=== PATIENT | female | born 1980 | race Caucasian/White ===

== ENCOUNTER 2020-05-15 07:15 | Inpatient (IN) | payer BC ==
[~2020-05-15 07:15] MED LIST: Celecoxib 200 MG Cap PO ONE; Dexamethasone 4 MG/ML SDV ONE; Glycopyrrolate 0.2 MG/ML 5 ML MDV ONE; Lactated Ringers 1,000 ML ONE; Neostigmine Methylsulfate 1 MG/ML 5 ML Syringe ONE; Ondansetron 4 MG/2 ML SDV ONE; Propofol 200 MG/20 ML SDV ONE; Rocuronium 50 MG/5 ML Vial ONE; Succinylcholine 200 MG/10 ML MDV ONE; cefOXitin 2 GM Vial ONE; fentaNYL 250 MCG/5 ML SDV ONE
[2020-05-15] MEDS ORDERED: Acetaminophen 500 MG Tab PO ONE (07:45)
[2020-05-15] MEDS ORDERED: Scopolamine 1.5 MG Transdermal Patch TOP SCH (07:45)
[2020-05-15] MEDS ORDERED: Dextrose 5%-Lactated Ringers 1,000 ML IV SCH ×2 (08:00→13:45)
[2020-05-15] MEDS ORDERED: Albuterol/Ipratropium 3.0-0.5 MG/3 ML Neb Soln NEB ONE (08:00)
[2020-05-15] MEDS: cefOXitin 2 GM in Sodium Chloride 0.9% 50 ML IV ONE ×2 (09:00→14:03)
[2020-05-15] MEDS ORDERED: Ketamine 50 MG in Sodium Chloride 0.9% 49.5 ML IV SCH (09:00)
[2020-05-15] MEDS ORDERED: Ketamine 500 MG/5 ML MDV IV SCH (09:00)
[2020-05-15] MEDS ORDERED: fentaNYL 250 MCG/5 ML SDV ONE (09:30)
[2020-05-15] MEDS ORDERED: Rocuronium 50 MG/5 ML Vial ONE (09:57)
[2020-05-15] MEDS ORDERED: fentaNYL 100 MCG/2 ML SDV ONE (11:43)
[2020-05-15] MEDS ORDERED: 50% Dextrose in Water 50 ML Syringe IVPUSH PRN (12:05)
[2020-05-15] MEDS ORDERED: hydrOXYzine HCL 100 MG/2 ML SDV IM ONE (12:05)
[2020-05-15] MEDS ORDERED: Glucagon,Human Recombinant 1 MG Vial IM PRN (12:05)
[2020-05-15] MEDS ORDERED: Insulin Lispro 100 Unit/ML 3 ML KwikPen SUBCUT ONE (12:15)
[2020-05-15] MEDS: HYDROmorphone 1 MG/ML Syringe IV PRN ×2 (13:54→17:30)
[2020-05-15] MEDS ORDERED: Ondansetron 4 MG/2 ML SDV IVPUSH PRN (14:00)
[2020-05-15] MEDS ORDERED: Metoclopramide 10 MG/2 ML SDV IVPUSH PRN (14:00)
[2020-05-15] MEDS ORDERED: Acetaminophen 500 MG Tab PO PRN (14:00)
[2020-05-15] MEDS ORDERED: diphenhydrAMINE 50 MG/ML SDV IVPUSH PRN (14:00)
[2020-05-15] MEDS ORDERED: Pantoprazole 40 MG Vial IVPUSH SCH ×2 (14:00→18:00)
[2020-05-15] MEDS ORDERED: Acetaminophen 500 MG Tab PO SCH (14:00)
[2020-05-15] MEDS ORDERED: HYDROmorphone 0.5 MG/0.5 ML Syringe IVPUSH PRN (14:00)
[2020-05-15] MEDS ORDERED: Calcium Gluconate 10% 1 GM/10 ML SDV IVPUSH PRN (14:00)
[2020-05-15] MEDS ORDERED: Insulin Lispro 100 Unit/ML 3 ML KwikPen SUBCUT PRN (14:00)
[2020-05-15] MEDS: Lactated Ringers 1,000 ML IV SCH ×2 (14:01→21:42)
[2020-05-15] MEDS: Labetalol 20 MG/4 ML Syringe IVPUSH PRN ×3 (14:05→16:29)
[2020-05-15] MEDS: Albuterol/Ipratropium 3.0-0.5 MG/3 ML Neb Soln INH SCH ×2 (14:12→21:26)
[2020-05-15] MEDS: cefOXitin 2 GM in Sodium Chloride 0.9% 50 ML IV SCH ×2 (15:54→21:26)
[2020-05-15] MEDS: Acetaminophen 500 MG Tab PO SCH ×2 (15:54→23:43)
[2020-05-15] MEDS ORDERED: MVI, Adult with Vitamin K 10 ML, Thiamine 200 MG, Zinc/Copper/Manganese/Selenium 1 ML i... IV SCH ×4 (16:00)
[2020-05-15] MEDS: Heparin Sodium 5,000 Units/ML Vial SUBCUT SCH (17:33)
[2020-05-15] MEDS: hydrOXYzine HCL 100 MG/2 ML SDV IM PRN (18:20)
[2020-05-15] MEDS: oxyCODONE 5 MG Tab PO PRN (19:37)
[2020-05-16] MEDS: hydrOXYzine HCL 100 MG/2 ML SDV IM PRN ×5 (00:54→18:06)
[2020-05-16] MEDS: oxyCODONE 5 MG Tab PO PRN ×4 (01:17→19:36)
[2020-05-16] MEDS ORDERED: Iopamidol 612 MG/ML 50 ML SDV PO STA (03:01)
[2020-05-16] MEDS: Lactated Ringers 1,000 ML IV SCH ×2 (03:26→11:39)
[2020-05-16] MEDS: cefOXitin 2 GM in Sodium Chloride 0.9% 50 ML IV SCH ×4 (04:13→21:19)
[2020-05-16] MEDS: Heparin Sodium 5,000 Units/ML Vial SUBCUT SCH ×3 (04:59→21:20)
[2020-05-16] MEDS: Albuterol/Ipratropium 3.0-0.5 MG/3 ML Neb Soln INH SCH ×4 (06:57→20:38)
[2020-05-16] MEDS: Acetaminophen 500 MG Tab PO SCH ×2 (07:21→15:14)
[2020-05-16] MEDS: SCOPOLAMINE PATCH CHECK TOP SCH (09:00)
[2020-05-16] MEDS: FLUoxetine 20 MG Cap PO SCH (09:05)
[2020-05-16] MEDS: Celecoxib 200 MG Cap PO SCH ×2 (09:05→21:21)
--- NOTE | 2020-05-16 09:08 | CR ---
[facility] HISTORY: Postbariatric surgery FINDINGS: Patient swallowed water-soluble contrast. Upright views of the abdomen show no evidence of extravasation or obstruction. There is a surgical drain in the left upper quadrant. IMPRESSION: Status post bariatric surgery No extravasation or obstruction seen
[2020-05-16] MEDS ORDERED: MVI, Adult with Vitamin K 10 ML, Thiamine 200 MG, Zinc/Copper/Manganese/Selenium 1 ML i... IV SCH ×4 (16:00)
[2020-05-16] MEDS: Pantoprazole 40 MG Delayed-Release Granules 1 Packet PO SCH (16:06)
[2020-05-16] MEDS: HYDROmorphone 1 MG/ML Syringe IV PRN (21:16)
[2020-05-17] MEDS: Acetaminophen 500 MG Tab PO SCH ×4 (00:03→23:08)
[2020-05-17] MEDS: oxyCODONE 5 MG Tab PO PRN ×4 (01:19→22:07)
[2020-05-17] MEDS: Cyclobenzaprine 10 MG Tab PO PRN ×2 (02:49→12:05)
[2020-05-17] MEDS: Lactated Ringers 1,000 ML IV SCH (04:51)
[2020-05-17] MEDS: Heparin Sodium 5,000 Units/ML Vial SUBCUT SCH ×3 (05:18→22:08)
[2020-05-17] MEDS: Albuterol/Ipratropium 3.0-0.5 MG/3 ML Neb Soln INH SCH ×4 (07:07→20:44)
[2020-05-17] MEDS ORDERED: Cyanocobalamin (Vitamin B12) 1,000 MCG/ML SDV IM ONE (09:00)
[2020-05-17] MEDS: Celecoxib 200 MG Cap PO SCH ×2 (09:42→20:45)
[2020-05-17] MEDS: SCOPOLAMINE PATCH CHECK TOP SCH (09:43)
[2020-05-17] MEDS: FLUoxetine 20 MG Cap PO SCH (09:43)
[2020-05-17] MEDS ORDERED: Sodium Chloride 0.9% 10 ML Syringe IV PRN (09:47)
[2020-05-17] MEDS ORDERED: Magnesium Hydroxide 400 MG/5 ML Susp 30 ML Cup PO PRN (09:49)
[2020-05-17] MEDS: Docusate Sodium 100 MG Cap PO SCH ×2 (10:59→20:45)
[2020-05-17] MEDS: Bisacodyl 5 MG Tab PO SCH ×2 (10:59→20:45)
[2020-05-17] MEDS: Pantoprazole 40 MG Delayed-Release Granules 1 Packet PO SCH (15:55)
[2020-05-18] MEDS: oxyCODONE 5 MG Tab PO PRN ×2 (05:08→10:30)
[2020-05-18] MEDS: Heparin Sodium 5,000 Units/ML Vial SUBCUT SCH (05:09)
[2020-05-18] MEDS: Albuterol/Ipratropium 3.0-0.5 MG/3 ML Neb Soln INH SCH ×2 (07:08→10:45)
[2020-05-18] MEDS: Docusate Sodium 100 MG Cap PO SCH (08:27)
[2020-05-18] MEDS: FLUoxetine 20 MG Cap PO SCH (08:27)
[2020-05-18] MEDS: Celecoxib 200 MG Cap PO SCH (08:27)
[2020-05-18] MEDS: Bisacodyl 5 MG Tab PO SCH (08:27)
[2020-05-18] MEDS: Acetaminophen 500 MG Tab PO SCH (08:57)
--- NOTE | 2020-05-18 12:37 | PN ---
DATE OF SERVICE: 05/16/2020 The patient has been afebrile with stable vital signs status post laparoscopic duodenal switch yesterday. Her blood sugars are running in the mid 140s, and otherwise, the oral intake has been reasonably good. Urine output has been good and the plan will be to go up to a step-2 diet without solids today, back down on the IV rate, and get the Scott catheter out. With her weight of being 440 pounds, we will move the heparin up to q.8 hour rate for the time being. She may or may not be ready for discharge home tomorrow based on her mobility and pain control status. Corey Almanza MD /[id number]
--- NOTE | 2020-05-18 12:46 | DISCH ---
FINAL DIAGNOSES: 1. Morbid obesity. 2. Obstructive sleep apnea. 3. Prediabetes. 4. History of hypoparathyroidism. 5. History of polycystic ovary syndrome. 6. History of panic disorder and anxiety. 7. Hepatomegaly. 8. Paraesophageal diaphragmatic hernia associated with mediastinal lipoma. 9. Small peritoneal implant over gastric cardia. OPERATIVE PROCEDURES: Done on 05/15/2020: 1. Laparoscopic duodenal switch. 2. Juan-cut needle liver biopsy. 3. Repair of paraesophageal diaphragmatic hernia. 4. Excision of mediastinal lipoma. 5. Excision of peritoneal nodule over cardia of stomach. SUMMARY: This is a 39-year-old female presenting with longstanding morbid obesity and increasingly significant comorbidities. After preoperative evaluation and discussion, she wished to proceed with a duodenal switch. This was done on date of admission without difficulty. Postoperatively, she has done well at this point and will be discharged home using Tylenol, Celebrex, and some oxycodone for pain. At this point, her blood sugars have all been in the 106 to 118 range over the last 2 days without any specific treatment, i.e., off the metformin and she wishes to be off the metformin at this point for the PCOS issues as well, and she will be addressing that issue with Dr. Coley over time. Although with the weight loss, PCOS should likely significantly improve. At this point, she will be discharged home with liquid diet to be maintained for 1 month postoperatively. She will be on all her usual medications other than the metformin, and she will be instructed to hold the MVI and other supplements until after the first appointment, which will be with Ginna Jeronimo at [facility] on 05/26/2020. /[id number]
--- NOTE | 2020-05-18 13:38 | PN ---
DATE OF SERVICE: 05/17/2020 The patient has been afebrile with stable vital signs. Still having some abdominal bloating. No bowel movement. I was able to give her some bowel stimulation today. Otherwise, maximize activity and work with pulmonary toilet. Should be likely ready for discharge home tomorrow. Corey Almanza MD /[id number]
--- NOTE | 2020-05-19 11:25 | OR ---
DATE OF PROCEDURE: 05/15/2020 SURGEON: Corey Almanza MD PREOPERATIVE DIAGNOSIS: Morbid obesity. POSTOPERATIVE DIAGNOSES: 1. Morbid obesity. 2. Marked hepatomegaly. 3. Paraesophageal diaphragmatic hernia associated with mediastinal lipoma. 4. Peritoneal nodule over gastric cardia. OPERATIVE PROCEDURES: 1. Laparoscopic duodenal switch (17287). 2. Juan-Cut needle liver biopsy (49919). 3. Repair of paraesophageal diaphragmatic hernia (16059). 4. Excision of mediastinal lipoma (09246). 5. Excision of peritoneal nodule overlying gastric cardia (11105). ANESTHESIA: General. ASSISTANTS: Ginna Jeronimo PA-C and NORIS Jaeger. INDICATIONS FOR PROCEDURE: This is a 39-year-old female with longstanding morbid obesity and increasingly significant comorbidities. After preoperative evaluation and discussion, she wished to proceed with a duodenal switch procedure. Potential risks of the procedure including bleeding, infection, leaks from the GI closure lines, and problems with bowel obstruction over time as well as possibility of cardiopulmonary, septic, or hemorrhagic complications leading to were all discussed and the patient wishes to proceed. DETAILS OF PROCEDURE: The patient was taken to the operating room, and after general endotracheal anesthesia was induced, she was placed in a lithotomy position and a Scott catheter inserted. The abdomen was then prepped and draped. 20 cm inferior and 5 cm left of the xiphoid process, a transverse incision was made, and the peritoneal cavity entered under direct vision with an Optiview trocar, inflated to 15 mmHg pressure with CO2. Laparoscope was reinserted. No underlying trocar insertion site injuries were seen. Following this, 6 additional trocars were placed across the upper mid abdomen. The patient was noted to have marked hepatomegaly. The liver volume was roughly 2 to 3 times normal and grossly fatty infiltrated. Juan-Cut needle biopsy was obtained from left lobe of liver. Minimal bleeding from the biopsy sites was seen, and at that point, bilateral transversus abdominis plane blocks were placed. The small bowel was then identified at the ileocecal valve and then traced 300 cm back up from that point. A suture was placed in the bowel at that level and tacked up to the area adjacent to the transverse colon and the omentum to help maintain that localization. It was notable that the small bowel came up to the level of the duodenum without significant tension. At this point, the liver was retracted anteriorly. Two findings were identified, one was that of a small peritoneal nodule over the gastric cardia. This was roughly a 2 mm nodular lesion and this along with some attached fatty tissue was then excised for histologic evaluation. The patient was also noted to have significant paraesophageal diaphragmatic hernia that was reduced. During the course of dissection, mediastinal lipoma was encountered and was excised to facilitate more adequate crural repair, which was then accomplished with anterior sutures of 0 Ethibond sutures reinforced with PTFE pledgets. The sleeve gastrectomy portion of the procedure then was initiated starting over the mid greater curvature of the gastric body. Using Harmonic scalpel, the dissection was continued upwards through the highest and posterior short gastric vessels. At that point, some filmy adhesions between the gastric body and cardia and the subjacent retroperitoneum were divided with Harmonic scalpel as well. The pylorus was then marked with electrocautery and the dissection continued distally removing the omentum away from the remainder of the stomach and then beyond the pylorus roughly 4 cm. At this point, the resectional phase of the sleeve gastrectomy was initiated beginning 6 cm proximal to the pylorus. The antrum was divided initially with 2 reinforced black loads with care taken to avoid overtightening at the incisura angularis. A 40-Macedonian chest tube was then placed orally per Anesthesia, positioned along the lesser curvature of the stomach. The remainder of the gastrectomy was then completed using that chest tube as a template using reinforced black loads for remainder of the resection. The stomach was then placed off to the sideward and was removed subsequently near the end of the procedure. At this point, the duodenum was dissected posteriorly and superiorly roughly 4 cm distal to the pylorus. This then allowed division of the duodenum, which was accomplished with 2 firings of the reinforced AIDEE purple loads. Some of the lesser omental tissue to the proximal duodenum was then divided with a AIDEE negrete load, which allowed downward mobilization of the duodenum to facilitate more adequate tension-free anastomosis. The small bowel was then tacked to the superior and inferior aspects of the proximally divided duodenum with seromuscular stitches of 3-0 Vicryl stitch. An enterotomy was then placed in the ileum and the inferior aspect of the duodenum, and the initial duodenal ileostomy was created with an internal firing of the 30 mm AIDEE stapler. The common opening was then closed with placement of 3 sutures; one superior, one inferior, and one in the middle of opening with 3-0 Vicryl holding this upward as the purple load was fired transversely thus completing the duodenal ileostomy. Fibrin sealant was then used to reinforce the duodenal ileostomy. Of note, the mesentry of small bowel was such that it was felt that creating the second anastomosis between the 2 segments of the ileum would be contraindicated due to this presenting as some additional tension on the primary duodenal ileostomy site and the high risk for a leak and this could be done at a later time if it becomes clinically necessary. The afferent limb was then tacked up to the antrum and then to the omentum just inferior to that with some 2 additional sutures of 3-0 Vicryl stitch to facilitate a distal migration of the gastrointestinal contents as it entered the duodenal ileostomy. Fibrin sealant was then also placed along the length of the sleeve gastrectomy staple line and some omentum tacked up along its length as well. A leak test was then accomplished with injection of air into the sleeve gastrectomy. No leaks were seen while the anastomosis and sleeve gastrectomy line were submerged with cefoxitin-containing saline solution. Air was seen flowing through the duodenal ileostomy into the efferent limb indicating patency of the anastomosis. At this point, the stomach was retrieved through the left lateral trocar site, and single Slim-Powers drain was placed adjacent to the gastroesophageal junction and from there up into the splenic fossa. The trocars were then sequentially removed. The peritoneal cavity deflated. Incisions were closed with some 4-0 Vicryl skin stitch as was used to fix the drain. The patient was taken to the recovery room in satisfactory condition. Physician captain's assistant, Ginna Jeronimo, played an essential role in assisting in this case, helping to position the patient, retract structures as needed, as well as suturing and cutting sutures when indicated. Her presence improved patient safety and decreased operative time. Corey Almanza MD /[id number]
== END 2020-05-18 11:15 | disposition home or self-care (01) | DRG 403 ==
LOC: EDSTATUS 07:15 → JP.SDS 07:40 → JP.MS 07:40 → JP.ICU 12:45 → JP.MS 05-16 17:37
PROVIDERS: ADMIT Surgery; ATTEND Surgery
PROC: 0D190ZB Bypass Duodenum to Ileum, Open Approach (ICD-10-PCS; principal; 2020-05-15)
PROC: 0FB20ZX Excision of Left Lobe Liver, Open Approach, Diagnostic (ICD-10-PCS; 2020-05-15)
PROC: 0BQT0ZZ Repair Diaphragm, Open Approach (ICD-10-PCS; 2020-05-15)
PROC: 0JB60ZZ Excision of Chest Subcutaneous Tissue and Fascia, Open Approach (ICD-10-PCS; 2020-05-15)
PROC: 0DBW0ZZ Excision of Peritoneum, Open Approach (ICD-10-PCS; 2020-05-15)
DX: E66.01 Morbid (severe) obesity due to excess calories (principal); G47.33 Obstructive sleep apnea (adult) (pediatric); R73.03 Prediabetes; E20.9 Hypoparathyroidism, unspecified; E28.2 Polycystic ovarian syndrome; F41.0 Panic disorder [episodic paroxysmal anxiety]; R16.0 Hepatomegaly, not elsewhere classified; K44.9 Diaphragmatic hernia without obstruction or gangrene; D17.4 Benign lipomatous neoplasm of intrathoracic organs; K66.9 Disorder of peritoneum, unspecified; Z79.84 Long term (current) use of oral hypoglycemic drugs; Z79.899 Other long term (current) drug therapy; Z90.49 Acquired absence of other specified parts of digestive tract; Z87.891 Personal history of nicotine dependence; Z68.43 Body mass index [BMI] 50.0-59.9, adult
CPT/HCPCS: 36415; 74240; 74240-26; 81025; 82962; 86850; 86900; 86901; 88304; 88305; 88307; 88313; 93005; 94640; 94762; A9270-GY; C9113; J0171; J0330; J0694; J1100; J1170; J1644; J1790; J1815; J1815-GY; J2405; J2704; J2710; J2795; J3010; J3410; J3411; J3420; J3475; J3490; J7050; J7120; J7121; J7620-GY; Q9967